=== PATIENT | female | born 1975 | race American Indian/Alaskan Native ===

== ENCOUNTER 2017-01-23 11:26 | Emergency (ER) | payer SELFPAY ==
[2017-01-23 12:11] LABS: Basophils % (Auto) 0.5 % (0.0-1.8); Eosinophils % (Auto) 3.9 % (0.0-4.3); Hematocrit 43.4 % (30.3-42.9); Hemoglobin 14.4 gm/dl (10.1-14.3); Mean Corpuscular HGB Conc 33 % (30-34); Mean Corpuscular Hemoglobin 32 pg (28-32); Mean Corpuscular Volume 97 fl (79-97); Platelet Count 284 K/mm3 (140-440); Red Blood Count 4.48 M/mm3 (3.65-5.03); Red Cell Distribution Width 13.7 % (13.2-15.2); White Blood Count 7.4 K/mm3 (4.5-11.0)
[2017-01-23 12:23] LABS: Alanine Aminotransferase 15 units/L (7-56); Albumin/Globulin Ratio 1.3 %; Alkaline Phosphatase 52 units/L (35-129); Anion Gap 18 mmol/L; BUN/Creatinine Ratio 7.27; Blood Urea Nitrogen 8 mg/dL (7-17); Carbon Dioxide 24 mmol/L (22-30); Glucose 91 mg/dL (65-100); Lipase 24 units/L (13-60); Potassium 3.9 mmol/L (3.6-5.0); Sodium 140 mmol/L (137-145); Total Protein 7.2 g/dL (6.3-8.2)
[2017-01-23 12:38] LABS: Bacteria,Urine 1+ /HPF (Negative); Bilirubin,Urine NEG (Negative); Blood,Urine SM (Negative); Ketones,Urine TR mg/dL (Negative); Leukocyte Esterase,Urine TR (Negative); Mucus,Urine FEW /HPF; Nitrite,Urine NEG (Negative); Protein,Urine <15 mg/dL mg/dL (Negative)
--- NOTE | 2017-01-23 17:45 | Emergency Department Report ---
ED Abdominal Pain HPI - General Chief Complaint: Abdominal Pain Stated Complaint: llq abd pain Time Seen by Provider: 01/23/17 16:19 Source: patient Mode of arrival: Ambulatory Limitations: No Limitations - History of Present Illness MD Complaint: abdominal pain -: Gradual Location: LLQ Radiation: none Migration to: no migration Severity: moderate Quality: other (crampy has had before but it just went away. on menses) Consistency: intermittent Worsens With: nothing Associated Symptoms: denies other symptoms. denies: nausea, vomiting, diarrhea , fever, chills, constipation, dysuria, hematemesis, hematochezia, melena, hematuria, anorexia, syncope - Related Data Previous Rx's Medication Instructions Recorded Last Taken Type Permethrin 5% [Acticin 5% CREAM] 1 applicatio TP ONCE #1 tube 11/14/14 Unknown Rx hydrOXYzine HCL [Atarax] 25 mg PO Q6HR PRN #20 tablet 11/14/14 Unknown Rx predniSONE [Deltasone] 40 mg PO QDAY #10 tab 11/14/14 Unknown Rx Doxycycline [Vibramycin CAP] 100 mg PO Q12HR #28 capsule 04/29/15 Unknown Rx metroNIDAZOLE [Flagyl] 500 mg PO Q12HR #14 tab 04/29/15 Unknown Rx HYDROcodone/APAP 7.5-325 [[place] 1 each PO Q8HR PRN #20 tablet 05/01/15 Unknown Rx 7.5/325] Sulfamethoxazole/Trimethoprim 1 each PO BID #20 tablet 05/01/15 Unknown Rx [Bactrim DS TAB] Ibuprofen [Motrin 600 MG tab] 600 mg PO Q8H PRN #30 tablet 07/17/16 Unknown Rx methOCARBAMOL [Robaxin TAB] 500 mg PO BID #30 tab 07/17/16 Unknown Rx Naproxen Sodium [Naproxen Sodium 375 mg PO BID PRN #12 tbmp.24hr 01/23/17 Unknown Rx ER] traMADol [Ultram] 50 mg PO Q6HR PRN #10 tablet 01/23/17 Unknown Rx Allergies Allergy/AdvReac Type Severity Reaction Status Date / Time amoxicillin trihydrate Allergy Swelling Verified 01/23/17 11:32 [From Amoxil] sucralfate [From Carafate] Allergy Swelling Verified 01/23/17 11:32 ED Review of Systems ROS: Stated complaint: ABD PAIN/DIZZINESS/BLURRED VISION Other details as noted in HPI Comment: All other systems reviewed and negative Constitutional: no symptoms reported, see HPI. denies: chills Eyes: as per HPI. denies: eye pain ENT: as per HPI. denies: ear pain, throat pain Respiratory: no symptoms reported, see HPI. denies: cough, orthopnea Cardiovascular: as per HPI. denies: chest pain, palpitations, dyspnea on exertion, orthopnea Endocrine: no symptoms reported, see HPI. denies: excessive sweating, flushing , intolerance to cold, intolerance to heat Gastrointestinal: as per HPI, abdominal pain. denies: nausea, vomiting, diarrhea, constipation, hematemesis, melena, hematochezia Genitourinary: as per HPI, dysuria (sometimes she states). denies: urgency, frequency, hematuria, discharge (denies. 1 sex partner. 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 denies: rash, lesions Neurological: as per HPI. denies: headache, weakness Psychiatric: as per HPI. denies: anxiety, depression Hematological/Lymphatic: as per HPI. denies: easy bleeding ED Past Medical Hx - Past Medical History Previous Medical History?: No Additional medical history: Allergies - Surgical History Past Surgical History?: No - Family History Family history: no significant - Social History Smoking Status: Current Every Day Smoker Substance Use Type: None - Medications Home Medications: Home Medications Medication Instructions Recorded Confirmed Last Taken Type Permethrin 5% [Acticin 5% CREAM] 1 applicatio TP ONCE #1 tube 11/14/14 Unknown Rx hydrOXYzine HCL [Atarax] 25 mg PO Q6HR PRN #20 tablet 11/14/14 Unknown Rx predniSONE [Deltasone] 40 mg PO QDAY #10 tab 11/14/14 Unknown Rx Doxycycline [Vibramycin CAP] 100 mg PO Q12HR #28 capsule 04/29/15 Unknown Rx metroNIDAZOLE [Flagyl] 500 mg PO Q12HR #14 tab 04/29/15 Unknown Rx HYDROcodone/APAP 7.5-325 [[place] 1 each PO Q8HR PRN #20 tablet 05/01/15 Unknown Rx 7.5/325] Sulfamethoxazole/Trimethoprim 1 each PO BID #20 tablet 05/01/15 Unknown Rx [Bactrim DS TAB] Ibuprofen [Motrin 600 MG tab] 600 mg PO Q8H PRN #30 tablet 07/17/16 Unknown Rx methOCARBAMOL [Robaxin TAB] 500 mg PO BID #30 tab 07/17/16 Unknown Rx Naproxen Sodium [Naproxen Sodium 375 mg PO BID PRN #12 tbmp.24hr 01/23/17 Unknown Rx ER] traMADol [Ultram] 50 mg PO Q6HR PRN #10 tablet 01/23/17 Unknown Rx ED Physical Exam - General Limitations: No Limitations General appearance: alert, in no apparent distress - Head Head exam: Present: atraumatic, normocephalic - Eye Eye exam: Present: normal appearance, PERRL, EOMI - ENT ENT exam: Present: normal exam, normal orophraynx, mucous membranes moist. Absent: mucous membranes dry - Neck Neck exam: Present: normal inspection, full ROM. Absent: tenderness, meningismus, lymphadenopathy, thyromegaly - Respiratory Respiratory exam: Present: normal lung sounds bilaterally. Absent: respiratory distress, wheezes, rales, rhonchi, stridor - Cardiovascular Cardiovascular Exam: Present: regular rate, normal rhythm. Absent: bradycardia , tachycardia, irregular rhythm - GI/Abdominal GI/Abdominal exam: Present: soft, tenderness (llq almost to midline. on meses. no n/v/d), normal bowel sounds. Absent: distended, guarding, rebound, rigid, diminished bowel sounds, hyperactive bowel sounds, hypoactive bowel sounds, organomegaly, mass, bruit, pulsatile mass, hernia - Extremities Exam Extremities exam: Present: normal inspection, full ROM. Absent: tenderness - Back Exam Back exam: Present: normal inspection, full ROM. Absent: tenderness, CVA tenderness (R), CVA tenderness (L), muscle spasm, paraspinal tenderness, vertebral tenderness, rash noted - Neurological Exam Neurological exam: Present: alert, altered, oriented X3, CN II-XII intact, normal gait, reflexes normal. Absent: abnormal gait, motor sensory deficit - Psychiatric Psychiatric exam: Present: normal affect, normal mood. Absent: depressed, agitated - Skin Skin exam: Present: warm, dry, intact, normal color. 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 no blood in stool. no n/v/d exam wnl x tenderness almost to midline on l Reevaluation #2: 01/23/17 18:52 vss nad ambulatory rad report noted- cyst, no free fluid pt non ill appearing. no fever. h/h wnl. 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 ED Disposition Clinical Impression: Ovarian cyst, Menses painful Disposition: DC-01 TO HOME OR SELFCARE Is pt being admited?: No Does the pt Need Aspirin: No Condition: Good Instructions: Abdominal Pain (ED) Additional Instructions: warm compresses follow up obgyn to be sure this resolves Referrals: PRIMARY CARE, [Primary Care Provider] - 3-5 Days Time of Disposition: 18:50
--- NOTE | 2017-01-23 18:36 | Ultrasound Report ---
FINAL REPORT EXAM: US PELVIC COMPLETE HISTORY: LLQ and pelvic pain . LMP 01/20/2017 TECHNIQUE: Ultrasound of the pelvis using transabdominal and transvaginal imaging PRIORS: None. FINDINGS: Uterus: Uterus is normal in size and normal and homogeneous in echogenicity without focal fibroid formation. The uterus measures 6.1 x 2.1 x 3.1 cm in size. Endometrial stripe: Normal and uniform in thickness measuring 4.3 mm. Ovaries: Both ovaries appear prominent in size but are normal in echogenicity with normal blood flow bilaterally. The right ovary measures 4.2 x 2.0 x 3.0 cm and the left ovary measures 3.6 x 2.4 x 2.8 cm in size. There is a hypoechoic avascular rounded focus in the left ovary measuring 2.2 cm, likely a hemorrhagic cyst. Other: There is no evidence for solid adnexal mass seen. Minimal fluid in the cul-de-sac is nonspecific. IMPRESSION: 1. Probable hemorrhagic cyst in the left ovary. 2. Otherwise, negative pelvic ultrasound.
[2017-01-23 19:52] VITALS: BP 128/88
== END 2017-01-23 20:26 | disposition home or self-care (01) ==
LOC: ED 11:26
DX: N83.209 Unspecified ovarian cyst, unspecified side (principal); R10.32 Left lower quadrant pain; F17.200 Nicotine dependence, unspecified, uncomplicated; Z88.1 Allergy status to other antibiotic agents; Z88.8 Allergy status to other drugs, medicaments and biological substances
CPT/HCPCS: 36415; 76830; 76856; 80053; 81001; 82962; 83690; 84703; 85025; 93005; 93010

== ENCOUNTER 2018-04-26 16:51 | Emergency (ER) | payer OTHER ==
[2018-04-26] MEDS ORDERED: NACL 0.9% 1000 ML 1,000 ML IV ONE (19:59)
[2018-04-26 20:14] LABS: Basophils # (Auto) 0.1 K/mm3 (0.0-0.1); Basophils % (Auto) 0.9 % (0.0-1.8); Eosinophils # (Auto) 0.1 K/mm3 (0.0-0.4); Eosinophils % (Auto) 1.8 % (0.0-4.3); Hematocrit 42.5 % (30.3-42.9); Hemoglobin 14.7 gm/dl (10.1-14.3); Lymphocytes # (Auto) 2.5 K/mm3 (1.2-5.4); Lymphocytes % (Auto) 36.7 % (13.4-35.0); Mean Corpuscular HGB Conc 35 % (30-34); Mean Corpuscular Hemoglobin 33 pg (28-32); Mean Corpuscular Volume 96 fl (79-97); Monocytes # (Auto) 0.4 K/mm3 (0.0-0.8); Monocytes % (Auto) 6.3 % (0.0-7.3); Platelet Count 281 K/mm3 (140-440); Red Blood Count 4.43 M/mm3 (3.65-5.03); Red Cell Distribution Width 14.6 % (13.2-15.2)
[2018-04-26 20:33] LABS: Alanine Aminotransferase 9 units/L (7-56); Albumin 4.3 g/dL (3.9-5); BUN/Creatinine Ratio 10; Blood Urea Nitrogen 9 mg/dL (7-17); Calcium 9.5 mg/dL (8.4-10.2); Hemolysis Index 81; Lipase 29 units/L (13-60)
[2018-04-27 00:01] LABS: HCG Qualitative,Urine Negative (Negative)
[2018-04-27 00:03] LABS: Bacteria,Urine 1+ /HPF (Negative); Bilirubin,Urine NEG (Negative); Blood,Urine NEG (Negative); Color,Urine Yellow (Yellow); Mucus,Urine 3+ /HPF
[2018-04-27] MEDS ORDERED: MACROBID PO ONE (00:49)
[2018-04-27] MEDS ORDERED: TYLENOL PO ONE (00:49)
--- NOTE | 2018-04-27 01:07 | Emergency Department Report ---
HPI - General Chief Complaint: Abdominal Pain Time Seen by Provider: 04/27/18 00:44 - HPI HPI: 42-year-old female presents to the emergency department with a complaint of 3 weeks of pain that starts in the left side of her mid to lower back and wraps around the flank, to the abdomen and also goes down her left leg. It is both a sharp and burning pain. She has not taken anything for her symptoms prior presentation. She has some mild burning with urination. She denies any fever, nausea, vomiting, vaginal bleeding or discharge. She denies any past medical history. Recent travel or sick contacts at home. ED Past Medical Hx - Past Medical History Previous Medical History?: No Additional medical history: Allergies - Surgical History Past Surgical History?: No - Social History Smoking Status: Current Every Day Smoker Substance Use Type: None - Medications Home Medications: Home Medications Medication Instructions Recorded Confirmed Last Taken Type Permethrin 5% [Acticin 5% CREAM] 1 applicatio TP ONCE #1 tube 11/14/14 Unknown Rx hydrOXYzine HCL [Atarax] 25 mg PO Q6HR PRN #20 tablet 11/14/14 Unknown Rx predniSONE [Deltasone] 40 mg PO QDAY #10 tab 11/14/14 Unknown Rx Doxycycline [Vibramycin CAP] 100 mg PO Q12HR #28 capsule 04/29/15 Unknown Rx metroNIDAZOLE [Flagyl] 500 mg PO Q12HR #14 tab 04/29/15 Unknown Rx HYDROcodone/APAP 7.5-325 [[place] 1 each PO Q8HR PRN #20 tablet 05/01/15 Unknown Rx 7.5/325] Sulfamethoxazole/Trimethoprim 1 each PO BID #20 tablet 05/01/15 Unknown Rx [Bactrim DS TAB] Ibuprofen [Motrin 600 MG tab] 600 mg PO Q8H PRN #30 tablet 07/17/16 Unknown Rx methOCARBAMOL [Robaxin TAB] 500 mg PO BID #30 tab 07/17/16 Unknown Rx Naproxen Sodium [Naproxen Sodium 375 mg PO BID PRN #12 tbmp.24hr 01/23/17 Unknown Rx ER] traMADol [Ultram] 50 mg PO Q6HR PRN #10 tablet 01/23/17 Unknown Rx Nitrofurantoin Monohyd/M-Cryst 100 mg PO BID #14 capsule 04/27/18 Unknown Rx [Macrobid 100 mg Capsule] ED Review of Systems ROS: Stated complaint: LEFT SIDE PAIN TO HIP/SOB Other details as noted in HPI Comment: All other systems reviewed and negative Constitutional: denies: chills, fever Eyes: denies: eye pain, eye discharge, vision change ENT: denies: ear pain, throat pain Respiratory: denies: cough, shortness of breath, wheezing Cardiovascular: denies: chest pain, palpitations Gastrointestinal: abdominal pain. denies: nausea, vomiting Genitourinary: dysuria. denies: discharge Musculoskeletal: back pain. denies: arthralgia Skin: denies: rash, lesions Neurological: denies: headache, numbness Physical Exam - Physical Exam Vital Signs: Vital Signs 04/26/18 04/27/18 04/27/18 19:55 00:45 00:58 Temperature 98.6 F Pulse Rate 84 74 Respiratory 16 16 16 Rate Blood Pressure 132/88 Blood Pressure 116/74 [Left] O2 Sat by Pulse 99 97 Oximetry Physical Exam: GENERAL: The patient is well-developed well-nourished. HENT: Normocephalic. Atraumatic. Patient has moist mucous membranes. EYES: Extraocular motions are intact. Pupils equal reactive to light bilaterally. NECK: Supple. Trachea is midline. CHEST/LUNGS: Clear to auscultation. There is no respiratory distress noted. HEART/CARDIOVASCULAR: Regular. There is no tachycardia. There is no murmur. ABDOMEN: Abdomen is soft. There is some mild left-sided flank and left lower quadrant abdominal tenderness to palpation. No guarding. Patient has normal bowel sounds. There is no abdominal distention. SKIN: Skin is warm and dry. NEURO: The patient is awake, alert, and oriented. The patient is cooperative. The patient has no focal neurologic deficits. The patient has normal speech. MUSCULOSKELETAL: There is no tenderness or deformity. There is no limitation range of motion. There is no evidence of acute injury. BACK: No midline thoracic or lumbar tenderness to palpation, step-off or deformity. ED Course Vital Signs 04/26/18 04/27/18 04/27/18 19:55 00:45 00:58 Temperature 98.6 F Pulse Rate 84 74 Respiratory 16 16 16 Rate Blood Pressure 132/88 Blood Pressure 116/74 [Left] O2 Sat by Pulse 99 97 Oximetry ED Medical Decision Making - Lab Data Result diagrams: 04/26/18 20:03 04/26/18 20:03 - Radiology Data Radiology results: report reviewed EXAM: CT ABDOMEN PELVIS W CON HISTORY: left flank and abd pain COMPARISON: Pelvic ultrasound from December 2016. TECHNIQUE: Contiguous axial images were obtained. Additional sagittal and coronal reformatted images were obtained. Administration of IV contrast given per institution protocol. Images submitted for interpretation. 100 cc Omnipaque 300. FINDINGS: Mild subsegmental atelectasis at the lung bases. No calcified gallstones or biliary dilatation. Homogeneous enhancement of the liver, spleen, pancreas and adrenal glands. No solid renal lesion. No hydronephrosis. Aorta and IVC are normal in caliber. Mild to moderate calcified plaque along the aorta. The appendix is gas-filled and normal in caliber measuring 5 millimeters in greatest diameter. No adjacent fat stranding or fluid. Small to moderate amount of stool within the colon. Large and small bowel loops normal in caliber. No focal inflammatory changes the bowel. Wall thickening the urinary bladder which appears relate to its decompressed state. No adjacent fat stranding or fluid. Uterus and right ovary grossly unremarkable. Trace fluid in the pelvis within physiologic limits. Simple appearing left ovarian cystic structure measuring 1.8 x 1.4 centimeters compatible dominant follicle. Lumbar vertebral body heights preserved. [id number] degenerative changes of the lumbar spine. Bony pelvis is grossly intact. Prominent markings glands cysts within the bilateral labia measuring 1.9 x 1.2 centimeters on the right and 0.7 x 0.7 centimeters on the left. IMPRESSION: No acute inflammatory changes of the abdomen and pelvis. 1.8 centimeter left ovarian cystic structure compatible dominant follicle. Trace free fluid in the pelvis within physiologic limits. Uterus and right ovary grossly unremarkable. Large and small bowel loops normal in caliber. The appendix is normal in caliber. No obstructive uropathy. Transcribed By: CANDE Dictated By: MARTA VILLEGAS MD Electronically Authenticated By: MARTA VILLEGAS MD Signed Date/Time: 04/27/18 0159 - Medical Decision Making This patient presents with a 3 week history of some left-sided back, flank and abdominal pain that she also says is swollen. The pain is reproducible. She does not appear to have any toxic or rigid abdomen and it is soft to touch. Labs have been unremarkable except for a mild urinary tract infection. Patient will be started on Macrobid. CT of the abdomen and pelvis with IV contrast shows a left ovarian cyst but otherwise no definitive reason for her discomfort. Vital signs stable throughout her ED course. She was given some Tylenol with some improvement. She has no midline back pain, step-off or deformity. No problems with bowel or bladder, numbness or paresthesias or any neurological deficits. She's been given referrals for primary care and [facility]. She will return to the ER with any worsening of her symptoms or any acute distress. - Differential Diagnosis UTI, nephrolithiasis, diverticulitis, pyelonephritis Critical Care Time: No Critical care attestation.: If time is entered above; I have spent that time in minutes in the direct care of this critically ill patient, excluding procedure time. ED Disposition Clinical Impression: Flank pain Back pain Qualifiers: Back pain location: low back pain Chronicity: unspecified Back pain laterality : left Sciatica presence: with sciatica Abdominal pain Qualifiers: Abdominal location: left lower quadrant Qualified Code(s): R10.32 - Left lower quadrant pain Ovarian cyst Qualifiers: Laterality: left Qualified Code(s): N83.202 - Unspecified ovarian cyst, left side UTI (urinary tract infection) Qualifiers: Urinary tract infection type: acute cystitis Hematuria presence: without hematuria Qualified Code(s): N30.00 - Acute cystitis without hematuria Disposition: TO HOME OR SELFCARE Is pt being admited?: No Condition: Stable Instructions: Ovarian Cyst (ED), Abdominal Pain (ED), Flank Pain (ED), Back Pain (ED) Additional Instructions: Please follow up with a primary care physician and [facility]. Return to the emergency Department with any worsening of your symptoms or any acute distress. Referrals: PRIMARY MD DAVID [Primary Care Provider] - 3-5 Days ELIU SUN MD [Staff Physician] - 3-5 Days [facility] [Provider [facility]] - 3-5 Days [facility] [Provider Group] - 3-5 Days [facility] [Outside] - 3-5 Days Forms: Work/School Release Form(ED) Time of Disposition: 02:53
--- NOTE | 2018-04-27 02:00 | Cat Scan Report ---
FINAL REPORT EXAM: CT ABDOMEN PELVIS W CON HISTORY: left flank and abd pain COMPARISON: Pelvic ultrasound from December 2016. TECHNIQUE: Contiguous axial images were obtained. Additional sagittal and coronal reformatted images were obtained. Administration of IV contrast given per institution protocol. Images submitted for interpretation. 100 cc Omnipaque 300. FINDINGS: Mild subsegmental atelectasis at the lung bases. No calcified gallstones or biliary dilatation. Homogeneous enhancement of the liver, spleen, pancreas and adrenal glands. No solid renal lesion. No hydronephrosis. Aorta and IVC are normal in caliber. Mild to moderate calcified plaque along the aorta. The appendix is gas-filled and normal in caliber measuring 5 millimeters in greatest diameter. No adjacent fat stranding or fluid. Small to moderate amount of stool within the colon. Large and small bowel loops normal in caliber. No focal inflammatory changes the bowel. Wall thickening the urinary bladder which appears relate to its decompressed state. No adjacent fat stranding or fluid. Uterus and right ovary grossly unremarkable. Trace fluid in the pelvis within physiologic limits. Simple appearing left ovarian cystic structure measuring 1.8 x 1.4 centimeters compatible dominant follicle. Lumbar vertebral body heights preserved. [id number] degenerative changes of the lumbar spine. Bony pelvis is grossly intact. Prominent markings glands cysts within the bilateral labia measuring 1.9 x 1.2 centimeters on the right and 0.7 x 0.7 centimeters on the left. IMPRESSION: No acute inflammatory changes of the abdomen and pelvis. 1.8 centimeter left ovarian cystic structure compatible dominant follicle. Trace free fluid in the pelvis within physiologic limits. Uterus and right ovary grossly unremarkable. Large and small bowel loops normal in caliber. The appendix is normal in caliber. No obstructive uropathy.
[2018-04-27] MEDS ORDERED: BENADRYL IV ONE (02:14)
[2018-04-27 03:11] VITALS: BP 125/72
== END 2018-04-27 03:30 | disposition home or self-care (01) ==
LOC: ED 16:51
DX: N30.00 Acute cystitis without hematuria (principal); N83.202 Unspecified ovarian cyst, left side; F17.200 Nicotine dependence, unspecified, uncomplicated; Z88.1 Allergy status to other antibiotic agents; Z88.8 Allergy status to other drugs, medicaments and biological substances
CPT/HCPCS: 36415; 74177; 80053; 81001; 81025; 83690; 85025; 96374; 99284; J1200; Q9967

== ENCOUNTER 2018-08-04 05:51 | Emergency (ER) | payer SELFPAY ==
--- NOTE | 2018-08-04 07:25 | Emergency Department Report ---
Abscess Boil HPI - HPI Chief Complaint: Skin/Abscess/Foreign Body Stated Complaint: CYST ON RT INNER THIGH Duration: 3 Days Location: Other (right groin) Severity: Moderate History: Yes Pain, Yes Previous History, No Fever, No Purulent Drainage, No Numbness, No Foreign Body, No Insect Bite HPI: This is unusual as directed female who presents with abscess to right groin for 3 days. She reports prior abscess to same region and had an I&D performed. 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 She was seen in this emergency room on August 02 and given antibiotics and treated for upper respiratory infection which she is taking with minimal improvement of symptoms. Patient states swelling has improved but she continues to have pain. She denies drainage, fever, numbness or tingling, vaginal discharge, pelvic pain, low back pain. Home Medications: Previous Rx's Medication Instructions Recorded Last Taken Type Fluticasone [Flonase] 1 spray NS QDAY #1 bottle 08/02/18 Unknown Rx Naproxen Sodium [Naproxen Sodium 375 mg PO BID PRN #12 tbmp.24hr 08/02/18 Unknown Rx ER] Sulfamethoxazole/Trimethoprim 1 each PO BID #10 tablet 08/02/18 Unknown Rx [Bactrim DS TAB] traMADol [Ultram] 50 mg PO Q6HR PRN #10 tablet 08/02/18 Unknown Rx Ibuprofen [Motrin 800 MG tab] 800 mg PO Q8HR PRN #15 tablet 08/04/18 Unknown Rx Allergies/Adverse Reactions: Allergies Allergy/AdvReac Type Severity Reaction Status Date / Time amoxicillin trihydrate Allergy Swelling Verified 01/23/17 11:32 [From Amoxil] sucralfate [From Carafate] Allergy Swelling Verified 01/23/17 11:32 ED Review of Systems ROS: Stated complaint: CYST ON RT INNER THIGH Other details as noted in HPI Constitutional: denies: chills, fever Respiratory: denies: cough, shortness of breath, wheezing Cardiovascular: denies: chest pain, palpitations Gastrointestinal: denies: abdominal pain, nausea, diarrhea Skin: lesions (abscess to right groin). denies: rash Neurological: denies: headache, weakness, paresthesias Psychiatric: denies: anxiety, depression ED Past Medical Hx - Past Medical History Previous Medical History?: No Additional medical history: Allergies - Surgical History Past Surgical History?: No - Social History Smoking Status: Current Every Day Smoker Substance Use Type: Alcohol - Medications Home Medications: Home Medications Medication Instructions Recorded Confirmed Last Taken Type Fluticasone [Flonase] 1 spray NS QDAY #1 bottle 08/02/18 Unknown Rx Naproxen Sodium [Naproxen Sodium 375 mg PO BID PRN #12 tbmp.24hr 08/02/18 Unknown Rx ER] Sulfamethoxazole/Trimethoprim 1 each PO BID #10 tablet 08/02/18 Unknown Rx [Bactrim DS TAB] traMADol [Ultram] 50 mg PO Q6HR PRN #10 tablet 08/02/18 Unknown Rx Ibuprofen [Motrin 800 MG tab] 800 mg PO Q8HR PRN #15 tablet 08/04/18 Unknown Rx ED Abscess Boil Physical Exam - Exam General: Vital signs noted. No distress. Alert and acting appropriately. Front/Back of Body, Lg (Color): 1 - 1 cm erythematous, non-fluctuant area to right groin, tenderness, no surrounding cellulitis, no warmth Size: 1 cm Exam: Yes Tenderness, Yes Normal Neurologic Exam, Yes Normal Circulation, No Fluctuance, No Surrounding Cellulites/Erythema, No Lymphangitis, No Crepitation, No Heart Murmur ED Course Vital Signs 08/04/18 05:59 Temperature 97.7 F Pulse Rate 87 Respiratory 16 Rate Blood Pressure 130/82 O2 Sat by Pulse 98 Oximetry Critical care attestation.: If time is entered above; I have spent that time in minutes in the direct care of this critically ill patient, excluding procedure time. ED Medical Decision Making - Medical Decision Making This is a 42 y.o. female that presents with a painful abscess to right groin for 3 days. Prior history of abscess to same region with I&D. Patient is stable and examined by me. No acute signs of distress noted. The patient was seen here 2 days ago and started on Bactrim. On focal exam there were no soft pocket palpated for I&D. There was a 1 cm erythematous area to the right groin, tenderness, and nonfluctuant. Given ibuprofen 600 mg po once in ER. Instructed to complete antibiotics as prescribed on prior visit and continue sitz bath. Referral to primary care provider and dermatology for continuing care. Start ibuprofen for pain. Educated patient on follow up plan to have wound reassessed in 2-3 days. Patient agrees to ED plan of care. Discharged home and follow up with PCP in 2-3 days. ED Disposition Clinical Impression: Cyst Disposition: TO HOME OR SELFCARE Is pt being admited?: No Does the pt Need Aspirin: No Condition: Stable Instructions: Sitz Bath (GEN) Additional Instructions: Please antibiotics as prescribed on prior visit. Start sitz bath as discussed on visit. Follow-up with the coat padder Follow up with your primary care provider. Prescriptions: Ibuprofen [Motrin 800 MG tab] 800 mg PO Q8HR PRN #15 tablet PRN Reason: Pain , Severe (7-10) Referrals: [facility] [Outside] - 3-5 Days [facility] [Outside] - 3-5 Days [facility] [Provider Group] - 3-5 Days Forms: Work/School Release Form(ED) Time of Disposition: 07:45
[2018-08-04] MEDS ORDERED: IBUPROFEN PO ONE (07:35)
[2018-08-04 07:50] VITALS: BP 126/80
== END 2018-08-04 07:49 | disposition home or self-care (01) ==
LOC: ED 05:51
DX: L02.214 Cutaneous abscess of groin (principal); L72.8 Other follicular cysts of the skin and subcutaneous tissue; F17.200 Nicotine dependence, unspecified, uncomplicated
CPT/HCPCS: 99282

== ENCOUNTER 2020-07-06 12:33 | Emergency (ER) | payer SELFPAY ==
[2020-07-06 12:48] VITALS: BP 138/93
--- NOTE | 2020-07-06 13:10 | XRay Report ---
LEFT FOOT 3 VIEW(S) INDICATION / CLINICAL INFORMATION: left foot injury and pain, left pinky toe jammed COMPARISON: None available. FINDINGS: BONES / JOINT(S): No acute fracture or subluxation. No significant arthritis. SOFT TISSUES: No significant abnormality. ADDITIONAL FINDINGS: None. Signer Name: Darryn Roth MD Signed: 07/06/2020 1:06 PM Workstation Name: [id number]
== END 2020-07-06 17:30 | disposition left against medical advice (07) ==
LOC: ED 12:33
DX: M79.675 Pain in left toe(s) (principal); Z53.21 Procedure and treatment not carried out due to patient leaving prior to being seen by health care provider